=== PATIENT | female | born 1945 | race Caucasian/White ===

== ENCOUNTER 2019-06-11 12:25 | Day surgery (SDC) | payer OTHER ==
[~2019-06-11] VITALS: Ht 157.5 cm; Wt 44.5 kg
[~2019-06-11 12:25] MED LIST: AMOCLA875 PO; BENTYL 20 MG PO; CHOL10002 PO; COMPAZINE10 MG; CYCL10; DIAZ2; DULO60 PO; ESCI10; Elocon45 GM TOP; FLUT.05NI; Flonase 0.05% N16 GM; Gabapentin600 MG; IBUP200; LISI5 PO; OMEP20ER PO; PARO20 PO; Pepcid40 MG PO; QUET25 PO; Ultram50 MG PO; [UNRECOGNIZED DRUG - REMARK]
--- NOTE | 2019-06-11 12:48 | NUR ---
06/11/19 1248 Astrid Torres 1ST IV ATTEMP IN RIGHT HAND 2ND IV ATTEMPT IN RIGHT FOREARM
== END 2019-06-11 13:50 | disposition home or self-care (01) ==
LOC: ORSCSDS 12:25
PROVIDERS: Internal Medicine Gastroenterology
PROC: 0DBE8ZX Excision of Large Intestine, Via Natural or Artificial Opening Endoscopic, Diagnostic (ICD-10-PCS; principal; 2019-06-11 13:45)
DX: R19.7 Diarrhea, unspecified (principal); R63.4 Abnormal weight loss; R11.0 Nausea; K57.30 Diverticulosis of large intestine without perforation or abscess without bleeding; J44.9 Chronic obstructive pulmonary disease, unspecified; Z87.891 Personal history of nicotine dependence; Z79.899 Other long term (current) drug therapy
CPT/HCPCS: 88305; J2704; J7120

== ENCOUNTER → 2019-11-15 | Outpatient (CLI) | payer OTHER, SELFPAY | END | disposition home or self-care (01) | LOC: LAB SHORT 12:30 → LAB 12:30 | DX: R19.7 Diarrhea, unspecified (principal) | CPT/HCPCS: 87493 ==

== ENCOUNTER → 2019-12-04 | Outpatient (CLI) | payer OTHER ==
[2019-12-04 19:40] LABS: Adenovirus F 40/41 Not Detected (NOT DETECT); Astrovirus Not Detected (NOT DETECT); Campylobacter Sp Not Detected (NOT DETECT); Cryptosporidium Not Detected (NOT DETECT); Cyclospora Cayetanensis Not Detected (NOT DETECT); E. Coli O157 Not Detected (NOT DETECT); Entamoeba Histolytica Not Detected (NOT DETECT); Enteroaggregative E. coli-EAEC Not Detected (NOT DETECT); Enteropathogenic E. coli-EPEC Not Detected (NOT DETECT); Enterotoxigenic E. coli-ETEC Not Detected (NOT DETECT); Giardia Lamblia Not Detected (NOT DETECT); Norovirus GI/GII Not Detected (NOT DETECT); Plesiomonas Shigelloides Not Detected (NOT DETECT); Rotavirus A Not Detected (NOT DETECT); Salmonella Sp Not Detected (NOT DETECT); Sapovirus Not Detected (NOT DETECT); Shiga Toxin-prod E. coli-STEC Not Detected (NOT DETECT); Shigella/Enteroin E. coli-EIEC Not Detected (NOT DETECT); Vibrio Cholerae Not Detected (NOT DETECT); Vibrio Sp Not Detected (NOT DETECT); Yersinia Enterocolitica Not Detected (NOT DETECT)
== END | disposition home or self-care (01) ==
LOC: LAB SHORT 10:30 → LAB 10:30 → LAB FUT 05-22 07:45
PROVIDERS: Internal Medicine Gastroenterology
DX: R19.7 Diarrhea, unspecified (principal)
CPT/HCPCS: 0097U

== ENCOUNTER 2021-03-22 18:36 | Emergency (ER) | payer OTHER ==
[~2021-03-22] VITALS: Ht 157.5 cm; Wt 49.4 kg
[~2021-03-22 18:36] MED LIST changes: +AMLO5 PO; +CLON.5 PO; +CYMBALTA30 M1 PO; +FAMO20 PO; +IBUP200 PO; +NEURONTIN600 MG; +Prochlorperazin10 MG PO; +QUETIAPINE FUMA50 M2 PO; +VALIUM PO
[2021-03-22 20:06] LABS: BASOPHILS ABSOLUTE AUTO 0.08 K/mm3 (0.00-0.23); BASOPHILS PERCENT AUTO 1 % (0-2); EOSINOPHILS ABSOLUTE AUTO 0.16 K/mm3 (0.00-0.68); EOSINOPHILS PERCENT AUTO 2 % (0-6); Hematocrit 27.1 % (33.0-51.0); Hemoglobin 9.5 g/dL (11.5-16.0); IMMATURE GRAN ABSOLUTE AUTO 0.07 K/mm3 (0.00-0.10); IMMATURE GRAN PERCENT AUTO 1 % (0-1); LYMPHOCYTES ABSOLUTE AUTO 0.57 K/mm3 (0.84-5.20); LYMPHOCYTES PERCENT AUTO 5 % (21-46); MONOCYTES ABSOLUTE AUTO 1.37 K/mm3 (0.16-1.47); MONOCYTES PERCENT AUTO 13 % (4-13); Mean Corpuscular HGB Conc 35.1 g/dL (31.5-36.5); Mean Corpuscular Volume 91 fL (80-100); Mean Platelet Volume 10.7 fL (9.1-12.4); NEUTROPHILS ABSOLUTE AUTO 8.69 K/mm3 (1.96-9.15); NEUTROPHILS PERCENT AUTO 80 % (41-73); Platelet Count 342 K/mm3 (150-400); RDW Coefficient Variation 18.3 % (11.7-14.2); RDW Standard Deviation 60.7 fL (35.1-46.3); Red Blood Cell Count 2.97 M/mm3 (3.80-5.20); White Blood Cell Count 10.94 K/mm3 (4.00-11.30)
[2021-03-22 20:23] LABS: Alanine Aminotransfer (ALT/SGP 9 U/L (12-78); Albumin/Globulin Ratio 0.8 (0.8-1.8); Alk Phos 89 U/L (50-136); Anion Gap 7 mmol/L (6-16); Aspartate Aminotrans (AST/SGOT 7 U/L (12-37); Bilirubin, Total 0.4 mg/dL (0.1-1.0); Blood Urea Nitrogen 19 mg/dL (8-24); Bun/Creatinine Ratio 19.7 (12.0-20.0); CO2, Blood 24 mmol/L (21-32); Calcium, Blood 8.8 mg/dL (8.5-10.1); Chloride, Blood 105 mmol/L (98-108); Creatinine, Blood 0.96 mg/dL (0.40-1.00); Globulin, Blood 3.9 g/dL (2.2-4.0); Glomerular Filtration Rate >60 (60-); Glucose, Blood 100 mg/dL (70-99); Potassium, Blood 3.7 mmol/L (3.5-5.5); Sodium, Blood 136 mmol/L (136-145); Total Protein, Blood 6.9 g/dL (6.4-8.2); Troponin I <0.015 ng/mL (0.000-0.040)
== END 2021-03-22 22:15 | disposition home or self-care (01) ==
LOC: ER 18:36
PROVIDERS: Emergency Medicine
DX: R07.9 Chest pain, unspecified (principal); Z79.899 Other long term (current) drug therapy
CPT/HCPCS: 71045; 71260; 80053; 83690; 84484; 85025; 93005; 93010; 99285-25; J7030; Q9967

== ENCOUNTER 2022-03-17 12:31 | Emergency (ER) | payer OTHER ==
[~2022-03-17] VITALS: Ht 157.5 cm; Wt 48.1 kg
[~2022-03-17 12:31] MED LIST changes: +MELO7.5 PO; +OXYC5; +Prednisone10 MG PO
[2022-03-17] MEDS ORDERED: OXYM.05NI (13:46)
== END 2022-03-17 13:58 | disposition home or self-care (01) ==
LOC: ER 12:31
DX: R09.81 Nasal congestion (principal); I10 Essential (primary) hypertension; Z88.5 Allergy status to narcotic agent; Z79.899 Other long term (current) drug therapy; Z87.891 Personal history of nicotine dependence
CPT/HCPCS: A9270

== ENCOUNTER 2022-05-02 07:58 | Emergency (ER) | payer OTHER ==
[~2022-05-02] VITALS: Ht 157.5 cm; Wt 46.7 kg
[~2022-05-02 07:58] MED LIST changes: +OXYM.05NI
[2022-05-02] MEDS ORDERED: TIZA4 PO (08:27)
[2022-05-02] MEDS ORDERED: OXAYDO5 M1 PO (10:37)
[2022-05-02] MEDS ORDERED: Voltaren100 GM TOP (10:38)
== END 2022-05-02 11:24 | disposition home or self-care (01) ==
LOC: ER 07:58
DX: M48.54XA Collapsed vertebra, not elsewhere classified, thoracic region, initial encounter for fracture (principal); C34.90 Malignant neoplasm of unspecified part of unspecified bronchus or lung; I10 Essential (primary) hypertension; Z88.5 Allergy status to narcotic agent; Z79.899 Other long term (current) drug therapy; Z87.891 Personal history of nicotine dependence
CPT/HCPCS: 71250; 94640; 94664; A9270; J1885

== ENCOUNTER 2022-05-08 07:52 | Inpatient (IN) | payer OTHER ==
[~2022-05-08] VITALS: Ht 157.5 cm; Wt 41.7 kg
[~2022-05-08 07:52] MED LIST changes: +OXAYDO5 M1 PO; +TIZA4 PO; +Voltaren100 GM TOP
[2022-05-08 08:20] LABS: BASOPHILS ABSOLUTE AUTO 0.04 K/mm3 (0.00-0.23); BASOPHILS PERCENT AUTO 0 % (0-2); EOSINOPHILS PERCENT AUTO 0 % (0-6); Hematocrit 39.6 % (33.0-51.0); Hemoglobin 13.4 g/dL (11.5-16.0); IMMATURE GRAN ABSOLUTE AUTO 0.03 K/mm3 (0.00-0.10); IMMATURE GRAN PERCENT AUTO 0 % (0-1); LYMPHOCYTES ABSOLUTE AUTO 0.49 K/mm3 (0.84-5.20); LYMPHOCYTES PERCENT AUTO 5 % (21-46); MONOCYTES ABSOLUTE AUTO 0.57 K/mm3 (0.16-1.47); MONOCYTES PERCENT AUTO 6 % (4-13); Mean Corpuscular HGB Conc 33.8 g/dL (31.5-36.5); Mean Corpuscular Volume 83 fL (80-100); Mean Platelet Volume 10.6 fL (9.1-12.4); NEUTROPHILS ABSOLUTE AUTO 8.36 K/mm3 (1.96-9.15); NEUTROPHILS PERCENT AUTO 88 % (41-73); Platelet Count 492 K/mm3 (150-400); RDW Coefficient Variation 16.7 % (11.7-14.2); RDW Standard Deviation 50.2 fL (35.1-46.3); Red Blood Cell Count 4.78 M/mm3 (3.80-5.20); White Blood Cell Count 9.49 K/mm3 (4.00-11.30)
[2022-05-08 08:33] LABS: Source, Urine Straight Cath
[2022-05-08 08:37] LABS: Appearance, Urine Clear (Clear); Bilirubin, Urine Neg (Neg); Blood, Urine 2+ (Neg); Color, Urine Yellow (P-Yellow); Glucose Qualitative, Urine 2+ (Neg); Ketones, Urine 4+ (Neg); Leukocyte Esterase, Urine Neg (Neg); Nitrite, Urine Neg (Neg); Protein, Urine 2+ (Neg); Specific Gravity, Urine 1.015 (1.003-1.022); Urobilinogen, Urine NORM (Normal)
[2022-05-08 08:43] LABS: Albumin, Blood 4.1 g/dL (3.4-5.0); Bilirubin, Total 0.9 mg/dL (0.1-1.0); Bun/Creatinine Ratio 15.5 (12.0-20.0); Creatinine, Blood 0.71 mg/dL (0.40-1.00); Globulin, Blood 4.2 g/dL (2.2-4.0); Potassium, Blood 3.7 mmol/L (3.5-5.5); Thyroid Stimulating Hormone 1.12 uIU/mL (0.360-4.800); Total Protein, Blood 8.3 g/dL (6.4-8.2)
[2022-05-08 08:43] LABS: Bacteria Rare /hpf; Squamous Epithelial Cells Rare /hpf (Few); White Blood Cells, Urine 0-2 /hpf (0-5)
[2022-05-08 11:36] LABS: U Amphetamine Screen Not Detected; U Barbituate Screen Not Detected; U Benzodiazapine Screen Not Detected; U Buprenorphine Screen Not Detected; U Cannabinoids Screen DETECTED; U Cocaine Screen Not Detected; U Methadone Screen Not Detected; U Methamphetamine Screen Not Detected; U Opiates Screen Not Detected; U Oxycodone Screen DETECTED; U Phencyclidine Screen Not Detected; U Propoxyphene Screen Not Detected
--- NOTE | 2022-05-08 18:49 | NUR ---
END OF SHIFT SUMMARY: PATIENT HAS BEEN ALERT TO SELF AND , VERY SLIGHTLY IMPROVED, PATIENT WAS PLACED ON RESTRAINTS, FOR SAFETY TO LINES, AND SELF, SHE IS CONFUSED WEAK AND EXTREMELY HIGH FOR A FALL. PATIENT HAS FLUIDS RUNNING NS AT 125 FOR A 1 TIME BAG. PATIENT HAS BEEN ST, NO ACUTE DISTRESS AT THE TIME OF THIS NOTE. PATIENT MORE CALM, NO NEED FOR THE IV ATIVAN NEEDED AT THIS MOMENT, PREFORMED ORAL CARE, DID NOT TOLERATE WELL, TRIED ICE, PATIENT COULD NOT TOLERATE IT, WILL INFORM NIGHT RN. TELE IN PLACE, WILL CONTINUE TO MONITOR, UNITL SHIFT CHANGE.
[2022-05-09 04:08] LABS: BASOPHILS ABSOLUTE AUTO 0.05 K/mm3 (0.00-0.23); BASOPHILS PERCENT AUTO 1 % (0-2); EOSINOPHILS ABSOLUTE AUTO 0.01 K/mm3 (0.00-0.68); EOSINOPHILS PERCENT AUTO 0 % (0-6); Hematocrit 36.8 % (33.0-51.0); IMMATURE GRAN ABSOLUTE AUTO 0.03 K/mm3 (0.00-0.10); IMMATURE GRAN PERCENT AUTO 0 % (0-1); LYMPHOCYTES ABSOLUTE AUTO 0.44 K/mm3 (0.84-5.20); LYMPHOCYTES PERCENT AUTO 4 % (21-46); MONOCYTES ABSOLUTE AUTO 1.23 K/mm3 (0.16-1.47); MONOCYTES PERCENT AUTO 11 % (4-13); Mean Corpuscular HGB Conc 32.6 g/dL (31.5-36.5); Mean Corpuscular Volume 86 fL (80-100); Mean Platelet Volume 11.1 fL (9.1-12.4); NEUTROPHILS PERCENT AUTO 84 % (41-73); Platelet Count 454 K/mm3 (150-400); RDW Coefficient Variation 17.1 % (11.7-14.2); RDW Standard Deviation 53.1 fL (35.1-46.3); Red Blood Cell Count 4.28 M/mm3 (3.80-5.20); White Blood Cell Count 10.96 K/mm3 (4.00-11.30)
[2022-05-09 04:36] LABS: Albumin, Blood 3.8 g/dL (3.4-5.0); Albumin/Globulin Ratio 1.1 (0.8-1.8); Bun/Creatinine Ratio 24.4 (12.0-20.0); Calcium, Blood 8.8 mg/dL (8.5-10.1); Creatinine, Blood 0.62 mg/dL (0.40-1.00); Globulin, Blood 3.4 g/dL (2.2-4.0); Potassium, Blood 3.4 mmol/L (3.5-5.5); Total Protein, Blood 7.2 g/dL (6.4-8.2)
--- NOTE | 2022-05-09 06:35 | NUR ---
SHIFT SUMMARY PATIENT ALERT, ORIENTED TO SELF ONLY. PATIENT WILL LOOK AT STAFF AND HOLD STAFF'S HANDS BUT WILL ONLY COMMUNICATE WITH ONE WORD ANSWERS OR BY SHAKING HER HEAD YES OR NO. VSS. MEDICATED PER EMAR FOR HTN. PATIENT REMAINS ON RA WITH O2 SAT >90%. JIGNESH IN PLACE FOR SAFETY/PROTECTION OF LINES/TUBES. CHRISTENSEN PATENT AND DRAINING DARK YELLOW URINE. PATIENT ABLE TO MOVE HERSELF IN BED INDEPENDENTLY. NO OTHER SIGNIFICANT CHANGES THIS SHIFT. WILL REPORT TO DAY SHIFT RN.
[2022-05-09] MEDS ORDERED: Amitriptyline H10 MG PO (09:03)
[2022-05-09] MEDS ORDERED: QUET100 PO (09:04)
[2022-05-09] MEDS ORDERED: PROM25 PO (09:09)
[2022-05-09] MEDS ORDERED: PREG150 PO (09:11)
[2022-05-09] MEDS ORDERED: ANORO ELLIPTA1 EACH INH (09:13)
[2022-05-09] MEDS ORDERED: ALBU8HFA2 INH (09:15)
--- NOTE | 2022-05-09 11:27 | NUR ---
BEDSIDE SWALLOW: PATIENT HAS FAILED SWALLOW EVAL: CALL PLACED TO PROVIDER PROVIDER AWARE OF SITUATION CONTINUE TO MONITOR. CHANGED ORDER FOR FLUIDS TO 75 PER HOUR.
--- NOTE | 2022-05-09 15:38 | NUR ---
END OF SHIFT SUMMARY: PATIENT HAS BEEN MAINLY UNCHANGED, HAS A VERY VERY SLIGHT INCREASE IN MENTATION, HOWEVER, PATIENT IS STILL NEEDING THE CHRISTENSEN, AND JIGNESH VEST. PATIENT HAS STILL HAD SLIGHTLY ELEVATED BLOOD PRESURE EVEN WITH 15 OF HYDRALAZINE. PATIENT RECIEVED TORDOL X 1 AND ATTEMPTED THE ODT NAUSEA MEDS, UNSUCCESSFUL ATTEMPT, PATIENT SPIT OUT THE ZOFRAN, PATIENT FAILED A SPEECH EVAL FROM THIS PRINTER MACHINE COULD NOT TOLERATE A SIP OF WATER AT THIS TIME, REATTEMPTED LATER WITH SAME RESULT, ORDER FOR ST. RATE CHANGE FROM 125 NS TO 75.
[2022-05-10 04:25] LABS: Bun/Creatinine Ratio 35.5 (12.0-20.0); Calcium, Blood 8.6 mg/dL (8.5-10.1); Creatinine, Blood 0.73 mg/dL (0.40-1.00); Potassium, Blood 2.9 mmol/L (3.5-5.5)
--- NOTE | 2022-05-10 05:24 | NUR ---
SHIFT SUMMARY PATIENT ALERT, ORIENTED TO SELF ONLY. PATIENT LOOKS AT AND TRACKS STAFF. CONTINUES TO ONLY COMMUNICATE BY SHAKING HER HEAD YES OR NO. OCCASIONAL VERBAL YES OR NO RESPONSES. HYPERTENSIVE AT TIMES, MEDICATED PER EMAR. JIGNESH IN PLACE FOR SAFETY. PATIENT ABLE TO REPOSITION SELF IN BED. NS INFUSING PER MAR. NO OTHER SIGNIFICANT CHANGES THIS SHIFT, WILL REPORT TO DAY SHIFT RN.
--- NOTE | 2022-05-10 09:20 | NUR ---
ASSUMPTION OF CARE: PATIENT IS THE SAME WHEN I LEFT THE PREVIOUS DAY FOR MENTATION. PATIENT HAS NS RUNNING AT 75, I STARTED HER k+ SHE HAS 60 MEQ ORDERED, BLOOD PRESSURE WAS ELEVATED GAVE HER 20 OF HYDRALAZINE, PROVIDER STOPPED BY AND WILL COME BACK SHE IS CURRENLTY SLEEPING. PATIENT STILL IN JIGNESH, RIGHT IV INFUSING WELL, NO SIGNS OF ACUTE DISTRESS. WILL CONTINUE TO MONITOR
--- NOTE | 2022-05-10 17:18 | NUR ---
END OF SHIFT SUMMARY: PATIENT HAS BEEN RESTING FOR ATLEAST 4 HOURS TODAY, HAS BEEN REPOSITIONED ATLEAST Q2, HOWEVER HAS ALSO BEEN SHIFTING AND MOVING INDEPENDENTLY. PATIENT HAS BEEN AFEBRILE, DENIES CHEST PAIN, OR SOB. PATIENT HAS STILL BEEN NPO, TOLERATING THE K+ REPLACEMENT SHE RECIEVED THROUGH THE DAY, 60 MEQ IN TOTAL. PATIENT SEEMS TO BE MORE WITHDRAWN, HOSPITLIST ORDERED A PSYCH CONSULT. SPO2 HAS BEEN >94% ON RA, RR 16 AT REST AND WHEN ANXIOUS 24, EASILY CONSULABLE, PERIPHERAL NUTRITION IS TO BE STARTED TODAY, POWERGLIDE CURRENLTY IN THE PROCESS OF BEING PLACED. PATIENT HAD A SLIGHT DECREASE TO MENTATION BEFORE FALLING ASLEEP SHE WAS CALLING OUT FOR HER MAMA. AFTER RESTING HER MENTATION HAS BEEN SLIGHTLY BETTER AND WHAT I HAVE SEEN SINCE HER BEING ADMITTED TO PCU AND THIS PACKER INSPECTOR. PATIENT IS STILL IN HER JIGNESH VEST, THAT IS LOOSE FITTING SHE LIKES TO SELF REPOSITION AND HAS ONLY STARTED TO GRAB LINES, AND HER CHRISTENSEN ONLY A COUPLE TIMES THROUGH THE DAY. PATIENT WAS TREATED FOR PAIN PER DEC, BLOOD PRESSURE WAS ELEVATED IN THE AM TOLERATED 20MG OF HYDRALAZINE WELL. AT TIME HER HR HAS BEEN IN THE UPPER 80'S WHICH IS AN IMPROVMENT FROM HER 100-110'S THIS AM AND PREVIOUS SHIFT. PATIENT ALSO TREATED FOR NAUSEA X 1. WILL CONTINUE TO MONITOR UNTIL SHIFT CHANGE NO CONCERNS FROM THIS PACKER INSPECTOR AT THIS TIME.
[2022-05-11 05:22] LABS: Bun/Creatinine Ratio 38.5 (12.0-20.0); Creatinine, Blood 0.65 mg/dL (0.40-1.00); Magnesium, Blood 2.4 mg/dL (1.6-2.4); Phosphorus, Blood 1.6 mg/dL (2.5-4.9); Potassium, Blood 3.2 mmol/L (3.5-5.5)
--- NOTE | 2022-05-11 06:05 | NUR ---
SHIFT SUMMARY PATIENT ALERT, ORIENTED TO SELF ONLY. PATIENT CONTINUES TO ONLY COMMUNICATE NONVERBALLY WITH STAFF. JIGNESH VEST IN PLACE FOR SAFETY. PATIENT ABLE TO REPOSITION SELF INDEPENDENTLY. VSS. PATIENT ON RA WITH O2 SAT >90%. CLINIMIX INFUSING. MEDICATED FOR PAIN PER EMAR. CHRISTENSEN IN PLACE DRAINING DARK YELLOW URINE TO GRAVITY. NO OTHER ACUTE CHANGES, WILL REPORT TO DAY SHIFT RN.
--- NOTE | 2022-05-11 09:33 | NUR ---
AM NOTES: FAMILY AT BEDSIDE AT THIS TIME, DAUGHTER AND . PT STILL NON VERBAL BUT WAS ABLE TO SAY "AHHH" WHEN ASK TO OPEN MOUTH AND SAY "AHHH". PT CAN FOLLOW SOME COMMANDS BUT MOSTLY NOT COOPERATIVE SPEECH THERAPIST CAME IN TO WORK WITH THE PT, PT UNABLE TO COOPERATE WAS REFUSING LIQUIDS OFFERED AND WAS SPITTING IT OUT. PT WAS ABLE TO MOVE AROUND IN BED WAS ATTEMPTING TO GET OUT OF BED, JIGNESH VEST AND BED ALARM ON FOR SAFETY. VITALS HRR 90'S SR, BP SYSTOLIC ELEVATED 160-180'S HYDRALAZINE IV 20MG GIVEN BP SYSTOLIC NOW ON THE 120'S, SATS ABOVE 92% ON RA AFEBRILE. PT AWAITING TO BE SEEN BY PSYCH FOR AN EVAL. CLINIMIX RUNNING AT 60MLS/HR WITH LIPIDS INFUSING AT 25MLS/HR, KPHOS WITH 30MM INFUSING WELL. PT WAS GIVEN TORADOL IV 15MG THIS MORNING PT RESTLESS IN BED AND NODS HEAD WHEN ASKED IF PT WAS IN PAIN. PT NOW CALM AND RESTING IN BED. CALL LIGHTS IN REACH WILL CONTINUE TO MONITOR
--- NOTE | 2022-05-11 17:49 | NUR ---
PT SUMMARY: SEE AM NOTES PT REMAINED ON JIGNESH VEST ALL SHIFT FOR SAFETY, PT WITH ATTEMPTS OF GETTING OUT OF BED. TRANSITION TO MEDICAL STATUS WITH NO TELE. VITALS STABLE PT REMAINED NON VERBAL BUT STILL ABLE TO VOICE OUT "AHHH" WHEN INSTRUCTED. THERAPY DOG CAME BY TWICE TO STIMULATE PT, WAS ABLE TO INTERACT WITH THE DOG BUT STILL NON VERBAL. DR KIRAN WAS ABLE TO SEE PT THIS AFTERNOON WAS ALSO ABLE TO TALK TO THE ABOUT THE EVAL. NO NEW ORDERS FOR NOW. PT KEPT NPO, CLNIMIX RUNNING AT 70MLS/HR. AND DAUGHTER HAS BEEN AT THE BEDSIDE MOST OF THE SHIFT. PT REPOSITIONED FOR COMFORT. NO REPORTED BM, CHRISTENSEN DRAINING PATENT VIA GRAVITY. CALL LIGHTS IN REACH, WILL REPORT TO ONCOMING SHIFT
--- NOTE | 2022-05-11 19:18 | NUR ---
ASSUMED CARE OF PT AT 1915. REPORT RECEIVED AT BEDSIDE. PT PRESENTS IN BED. SITTING AT SIDE OF BED EVEN WITH JIGNESH IN PLACE. NO ATTEMPTS TO TRY AND GET OUT OF BED AT THIS TIME. FAMILY AT BEDSIDE. PT IN NO APPARENT DISTRESS. WILL REVIEW CHART AND PLAN OF CARE FOR THIS PT.
--- NOTE | 2022-05-12 03:19 | NUR ---
PT REMAINS PLEASANTLY CONFUSED. DOES GET HERSELF UP TO SIT AT SIDE OF BED. VEST RESTRAINT MAINTAINS THAT PT UNABLE TO GET OUT OF BED. MEDICATED PT WITH 15 MG TORODOL FOR BACK PAIN. PT WILL NOD HER HEAD 'YES' TO QUESTIONS. WHEN REPOSITIONG PT AT ONE TIME, SHE DID SAY, "NO, NO." THESE ARE THE ONLY WORDS PT HAS SPOKEN TO THIS RN. WILL CONTINUE TO MONITOR PT FOR SAFETY.
[2022-05-12 05:53] LABS: Anion Gap 8 mmol/L (6-16); Blood Urea Nitrogen 36 mg/dL (8-24); Bun/Creatinine Ratio 48.3 (12.0-20.0); CO2, Blood 22 mmol/L (21-32); Calcium, Blood 8.7 mg/dL (8.5-10.1); Chloride, Blood 114 mmol/L (98-108); Creatinine, Blood 0.75 mg/dL (0.40-1.00); Glomerular Filtration Rate 83 (60-); Glucose, Blood 122 mg/dL (70-99); Magnesium, Blood 2.3 mg/dL (1.6-2.4); Phosphorus, Blood 3.6 mg/dL (2.5-4.9); Potassium, Blood 3.7 mmol/L (3.5-5.5); Sodium, Blood 144 mmol/L (136-145); Triglycerides 172 mg/dL (30-160)
--- NOTE | 2022-05-12 21:24 | NUR ---
CARE ASSUMPTION: PATIENT ATTEMPTING TO EXIT BED AND CHRISTENSEN PULLED TAUT. GRUNTED AT STAFF SHE WAS MOVED BACK IN BED. THIS RN ASSISTED CABIN CREW IN REPOSITIONING PATIEN AND PROVIDED PERICARE. DAUGHTER CAME IN TO SIT AT BEDSIDE AND ASKED WHY THE DOBHOFF WAS OUT, WHY PATIENT WAS NOT RECEIVING HER "MED COCKTAIL," AND WHY THE WRIST RESTRAINTS HAD BEEN REMOVED. WHEN SHE HAD LEFT BEDSIDE THIS MORNING SHE FELT THEY WERE MAKING PROGRESS SO WAS CONFUSED WHY AND WHAT CHANGED IN HER ABSENCE. REVIEWED MED LIST PER EMAR WITH DAUGHTER AND NOTED NO PSYCH MEDS HAVE BEEN ORDERED. DAUGHTER WANTS A CARE PLAN AND IS FRUSTRATED "NOTHING SEEMS TO BE BEING DONE TO HELP BRING MOM BACK." DAUGHTER EXPRESSES APPRECIATION FOR NURSING STAFF, BUT "WANTS TO TRY ONE MORE THING [PSYCH MEDS VIA DOBHOFF] BEFORE EXPLORING OTHER OPTIONS [HOSPICE OR PALLIATIVE CARE]." UPON FURTHER EXPLORATION OF NOTES AFTER DAUGHTER LEFT IT'S NOTED THE SECOND DOBHOFF WAS PULLED EVEN WITH WRIST RESTRAINTS IN PLACE LEAVING SEDATION THE ONLY OPTION FOR KEEPING DOBHOFF IN PLACE. SEDATION IS NOT A GOOD OPTION FOR THIS PATIENT MENTATION IS WHAT IS BEING ASSESSED. DR. VALADEZ SIGNED OFF ON PATIENT'S CASE AND WILL NOT BE PURSUING FURTHER PSYCHIATRY TREATMENT FOR HER. BED LOW WITH JIGNESH VEST IN PLACE, CALL LIGHT IN REACH.
[2022-05-13 04:54] LABS: BASOPHILS ABSOLUTE AUTO 0.05 K/mm3 (0.00-0.23); BASOPHILS PERCENT AUTO 0 % (0-2); EOSINOPHILS ABSOLUTE AUTO 0.05 K/mm3 (0.00-0.68); EOSINOPHILS PERCENT AUTO 0 % (0-6); Hematocrit 31.8 % (33.0-51.0); Hemoglobin 10.3 g/dL (11.5-16.0); IMMATURE GRAN ABSOLUTE AUTO 0.06 K/mm3 (0.00-0.10); IMMATURE GRAN PERCENT AUTO 1 % (0-1); LYMPHOCYTES ABSOLUTE AUTO 0.82 K/mm3 (0.84-5.20); LYMPHOCYTES PERCENT AUTO 7 % (21-46); MONOCYTES ABSOLUTE AUTO 1.12 K/mm3 (0.16-1.47); MONOCYTES PERCENT AUTO 9 % (4-13); Mean Corpuscular HGB 28.1 pg (26.0-34.0); Mean Corpuscular HGB Conc 32.4 g/dL (31.5-36.5); Mean Corpuscular Volume 87 fL (80-100); Mean Platelet Volume 12.3 fL (9.1-12.4); NEUTROPHILS ABSOLUTE AUTO 10.03 K/mm3 (1.96-9.15); NEUTROPHILS PERCENT AUTO 83 % (41-73); Platelet Count 356 K/mm3 (150-400); RDW Coefficient Variation 17.7 % (11.7-14.2); RDW Standard Deviation 55.8 fL (35.1-46.3); Red Blood Cell Count 3.67 M/mm3 (3.80-5.20); White Blood Cell Count 12.13 K/mm3 (4.00-11.30)
--- NOTE | 2022-05-13 05:06 | NUR ---
SHIFT SUMMARY: PATIENT RESPONDS TO HER NAME BY LOOKING AT STAFF, BUT OTHERWISE NONVERBAL. VS WNL ON RA. CHRISTENSEN DRAINING TO GRAVITY. JIGNESH VEST IN PLACE. REPOSITIONED TOLERATED AND PATIENT DID SOME REPOSITIONING HERSELF. MOVED PATIENT FROM BED TO CHAIR THIS AM. NO ADVERSE EVENTS THIS SHIFT. CALL LIGHT IN REACH. WILL CONTINUE TO MONITOR AND REPORT TO ONCOMING RN.
[2022-05-13 05:12] LABS: Albumin, Blood 2.9 g/dL (3.4-5.0); Bilirubin, Total 0.6 mg/dL (0.1-1.0); Bun/Creatinine Ratio 41.9 (12.0-20.0); Calcium, Blood 8.3 mg/dL (8.5-10.1); Creatinine, Blood 0.74 mg/dL (0.40-1.00); Potassium, Blood 3.7 mmol/L (3.5-5.5); Total Protein, Blood 5.9 g/dL (6.4-8.2)
[2022-05-13 05:34] LABS: Magnesium, Blood 2.2 mg/dL (1.6-2.4); Phosphorus, Blood 3.2 mg/dL (2.5-4.9)
--- NOTE | 2022-05-13 12:03 | NUR ---
UPDATE / COMFORT CARE PT ALERT THIS AM, NONVERBAL. PT DOES NOT ANSWER Y/N Q's. PT ABLE TO MOVE ALL EXT's. ST TO PT RM THIS AM W/ FAILED EVAL (SEE ST NOTE). PT FAMILY AT BEDSIDE, STATING THEY DON'T WANT PT TO SUFFER. MD QUISPE TO BEDSIDE DISCUSSING PLAN W/ PT DAUGHTERS. PT DAUGHTERS STATING "WE JUST WANT HER TO BE COMFORTABLE. SHE'S CALLING OUT FOR HER MOMMA. WE JUST WANT HER TO BE ABLE TO PASS COMFORTABLY." PT FAMILY STATING NO DESIRE FOR RE-INITIATING ANY TUBES FOR FEEDING OR MEDICATIONS. PALLIATIVE CARE NURSE NOTIFIED. W/ ORDER FOR COMFORT CARE PER FAMILY REQUEST AFTER DISCUSSION. FAMILY REMAINS AT BEDSIDE.
--- NOTE | 2022-05-13 13:28 | NUR ---
Spoke with Dr Iglesias and Primary RN Jade. Family has elected Comfort Care for Pt. 77 year old female admitted to the hospital for Toxic Metabolic Encephalopathy. Pt medical history and comordidites include: HTN, IBS, Depression, Squamous Cell Carcinoma S/P chemo & radiation currently in remission, Severe Pulmonary Emphysema, Chronic Thoracic Compression Fx, and Dementia. Pt resting in bed and is non verbal. Pt's daughters Leilani and Katya at bedside. Daughters report family feel that Pt would want to focus on end of life care and comfort at this point in her life. Daughters report Pt's spouse Alex is in agreement but is unable to attend today due to alcohol intoxication. Educated on comfort care and hospice philosophy with V/U made by family. Family confirm Pt's wishes for comfort care. Gentle education of needing to consider home with hospice with family verbalising understanding. Offered therapeutic listening and answered questions. Family expresses concerns regarding medications as Pt is not swallowing. Educated on comfort care medications. No other concerns reported at this time. Placed comfort care order set per V/O from Dr Iglesias. PPS 50% Palliative Care will remain available.
--- NOTE | 2022-05-13 18:00 | NUR ---
TRANSFER TO MEDICAL FLOOR PT COMFORT CARE STATUS. ALERT, SLEEPING INTERMITTENTLY. PT MEDICATED W/ PRN SL ROXANOL PER EMAR PRIOR TO PT TRANSFER TO [facility] D/T PT WAKING UP GRIMACING. REPORT GIVEN TO ACCEPTING MEDICAL FLOOR RN ASSUMING CARE OF PT. PT TAKEN TO [facility] IN BED, BY PCT & RN @ APPROX 1800. PT DAUGHTER AT BEDSIDE. CHRISTENSEN CATH PATENT & DRAINING.
--- NOTE | 2022-05-13 18:06 | NUR ---
Pt arrived to 308 via bed, she has her eyes open and shook her head yes when this nurse asked her if she is comfortable, daughter in attendence, comfort cart ordered. call light in reach.
--- NOTE | 2022-05-13 18:53 | NUR ---
pt uncomfortable in bed, got her into a recliner, and placed a scaplolamine patch, daughter in attendence. call light in reach.
--- NOTE | 2022-05-14 05:33 | NUR ---
SHIFT SUMMARY: PT HAS BEEN COOPERATIVE WITH CARE. FAMILY HAS BEEN AT BEDSIDE. THE PT HAS BEEN NON-VERBAL THIS SHIFT, BUT FAMILY REPORTS SHE WILL TALK SELDOMLY--SOME SENSICAL AND NON-SENSICAL. PT HAS BEEN TURNED Q2 AND SKIN [facility]TEGRITY IS INTACT FAMILY IS AWARE THAT PALLIATIVE CARE IS ON BOARD AND WILL BE HAVING A DISCUSSION WITH THE FAMILY. THERE ARE COMFORT CARE OPTIONS IN THE EMAR. WE WILL CONTINUE TO MONITOR THE REMAINDER OF THE SHIFT.
--- NOTE | 2022-05-14 09:02 | NUR ---
COMFORT CARE DAUGHTER AND AT [facility]. PATIENT NOD HEAD YES TO CONFIRM NAME AND VERBALLY STATED . MEDICATED FOR PAIN. REPOSITIONED. ORAL CARE COMPLETED. SIPS OF WATER PROVIDED AND TOLERATED WELL. FAMILY CONTINUING TO OFFER SIPS OF WATER.
--- NOTE | 2022-05-14 10:27 | NUR ---
Pt resting in recliner chair, alert, and talkative upon arrival. Pt's daughers are at bedside. Family reports they have been offering fluids and Pt has been accepting. Family report they would like to reverse coarse and take Pt off comfort care. Continued therapeutic listening and gentle education. Spoke with Dr Iglesias and discussed case. Dr Iglesias will order ST evaluation. Spok with Primary RN Simone, JUSTIN Carter and discussed case. Palliative Care will remain available for therapeutic visits.
--- NOTE | 2022-05-14 17:23 | NUR ---
SHIFT [facility] PATIENT STARTED SHIFT ON COMFORT CARE. PATIENT A&OX3, VERBALLY COMMUNICATING. ABLE TO TAKE SMALL SIPS OF WATER. PATIENT AND FAMILY REQUESTING IV NUTRITION AND ADDITIONAL MEASURES. PALLIATIVE CARE NOTIFIED. PATIENT TAKEN OFF COMFORT CARE AND SPEECH EVAL ORDERED. PATIENT TOLERATING PUREE DIET WELL. 2PA UP TO CHAIR. C/O PAIN ON BUTTOCK AND HIPS. MEDICATED PER DEC. CHRISTENSEN CATHETER IN PLACE PATENT AND DRAINING. BP SLIGHTLY ELEVATED. OTHER VITAL SIGNS STABLE. WILL CONTINUE TO MONITOR.
[2022-05-15 05:05] LABS: BASOPHILS ABSOLUTE AUTO 0.04 K/mm3 (0.00-0.23); BASOPHILS PERCENT AUTO 1 % (0-2); EOSINOPHILS ABSOLUTE AUTO 0.13 K/mm3 (0.00-0.68); EOSINOPHILS PERCENT AUTO 2 % (0-6); Hematocrit 27.4 % (33.0-51.0); IMMATURE GRAN ABSOLUTE AUTO 0.05 K/mm3 (0.00-0.10); IMMATURE GRAN PERCENT AUTO 1 % (0-1); LYMPHOCYTES ABSOLUTE AUTO 0.73 K/mm3 (0.84-5.20); LYMPHOCYTES PERCENT AUTO 9 % (21-46); MONOCYTES ABSOLUTE AUTO 0.91 K/mm3 (0.16-1.47); MONOCYTES PERCENT AUTO 11 % (4-13); Mean Corpuscular HGB 29.2 pg (26.0-34.0); Mean Corpuscular HGB Conc 32.8 g/dL (31.5-36.5); Mean Corpuscular Volume 89 fL (80-100); NEUTROPHILS PERCENT AUTO 78 % (41-73); Platelet Count 337 K/mm3 (150-400); RDW Coefficient Variation 18.1 % (11.7-14.2); RDW Standard Deviation 57.1 fL (35.1-46.3); Red Blood Cell Count 3.08 M/mm3 (3.80-5.20); White Blood Cell Count 8.46 K/mm3 (4.00-11.30)
[2022-05-15 05:31] LABS: Albumin, Blood 2.9 g/dL (3.4-5.0); Anion Gap 7 mmol/L (6-16); Blood Urea Nitrogen 32 mg/dL (8-24); Bun/Creatinine Ratio 34.3 (12.0-20.0); CO2, Blood 23 mmol/L (21-32); Calcium, Blood 8.6 mg/dL (8.5-10.1); Chloride, Blood 116 mmol/L (98-108); Creatinine, Blood 0.93 mg/dL (0.40-1.00); Glomerular Filtration Rate 64 (60-); Glucose, Blood 94 mg/dL (70-99); Phosphorus, Blood 3.2 mg/dL (2.5-4.9); Potassium, Blood 4.2 mmol/L (3.5-5.5); Sodium, Blood 146 mmol/L (136-145)
--- NOTE | 2022-05-15 05:40 | NUR ---
SHIFT SUMMARY: PT IS A/OX2-3. SHE SEEMS TO HAVE MORE CONCRETE THOUGHTS AND IS ABLE TO STATE HER NEEDS. SHE IS A 1-2 PA TO THE CHAIR. CHRISTENSEN IS PATENT AND DRAINING TO GRAVITY. NO OTHER CHANGES TO REPORT THIS SHIFT.
--- NOTE | 2022-05-15 16:22 | NUR ---
PT IS A/OX3, PLEASANT AND COOPERATIVE. THE PT IS UP WITH ASSIST. THE PT WAS UP AMBULATING WITH THE PHYSICAL THERAPIST TODAY. THE PT REPORTED ONLY MILD PAIN TODAY. NO PAIN MEDICINE WAS GIVEN. PTS FAMILY HAS BEEN AT THE BEDSIDE T/O THE DAY. CALL LIGHT IN REACH. THE PT APPEARS TO BE BREATHING EASILY
--- NOTE | 2022-05-16 04:17 | NUR ---
SHIFT SUMMARY: PT IS A/OX3. SHE IS 1PA FROM BED TO CHAIR. CHRISTENSEN CATH WAS REMOVED AT 2300. PT IS DUE TO VOID AND WILL BE BLADDER SCANNED PRIOR TO SHIFT CHANGE. SHE IS TAKING MEDS WHOLE W/ WATER AND IS ABLE TO USE STRAWS. DIET IS ADVANCED TO MECHANICAL SOFT. FAMILY IS AT BEDSIDE. CALL LIGHT IS WITHIN REACH.
[2022-05-16] MEDS ORDERED: Acetaminophen650 M1 PO (09:40)
[2022-05-16] MEDS ORDERED: HALOPERIDOL2 MG/1 M1 PO (09:44)
--- NOTE | 2022-05-16 12:35 | NUR ---
PT DISCHARGED THE PT S FAMILY VERBALIZED UNDERSTANDING OF THE DISCHARGE INSTRUCTIONS. FAMILY WAS REMINDED TO CALL ON TUESDAY TO [place] [facility] RE[facility] WITH HER PCP. THE PT APPEARED TO BE BREATHING EASILY AT THE TIME OF DC. THE PT WAS TRANSFERED VIA WHEELCHAIR ACCOMPANIED BY THE FINANCIAL SERVICES INTERN AND HER FAMILY.
== END 2022-05-16 11:12 | disposition home health service (06) | DRG 917 ==
LOC: ER 07:52 → PCU 15:01 → MEDS 05-13 17:53
PROVIDERS: Emergency Medicine; Family Medicine; Internal Medicine; ADMIT Internal Medicine
DX: T40.711A Poisoning by cannabis, accidental (unintentional), initial encounter (principal); G92.8 Other toxic encephalopathy; E87.0 Hyperosmolality and hypernatremia; E87.1 Hypo-osmolality and hyponatremia; T48.291A Poisoning by other drugs acting on muscles, accidental (unintentional), initial encounter; I10 Essential (primary) hypertension; F32.A Depression, unspecified; R05.9 Cough, unspecified; Z66 Do not resuscitate; E87.6 Hypokalemia; M54.9 Dorsalgia, unspecified; Z51.5 Encounter for palliative care; G89.29 Other chronic pain; K52.9 Noninfective gastroenteritis and colitis, unspecified; J43.9 Emphysema, unspecified; F17.210 Nicotine dependence, cigarettes, uncomplicated; F03.90 Unspecified dementia, unspecified severity, without behavioral disturbance, psychotic disturbance, mood disturbance, and anxiety; R13.10 Dysphagia, unspecified; F12.90 Cannabis use, unspecified, uncomplicated; Z85.118 Personal history of other malignant neoplasm of bronchus and lung; Z92.21 Personal history of antineoplastic chemotherapy; Z92.3 Personal history of irradiation; Z87.81 Personal history of (healed) traumatic fracture; Z90.49 Acquired absence of other specified parts of digestive tract; Z98.51 Tubal ligation status; Z98.890 Other specified postprocedural states; Z88.5 Allergy status to narcotic agent; Z79.52 Long term (current) use of systemic steroids; Z79.899 Other long term (current) drug therapy; Z79.891 Long term (current) use of opiate analgesic
CPT/HCPCS: 36415; 51702; 70450; 71045; 80048; 80053; 80069; 81001; 83690; 83735; 84100; 84145; 84443; 84478; 85025; 92526; 92610; 96372; 96374-59; 96375; 96375-59; 96376; 97116; 97161; 97530; 99285-25; A9270; G0378; J0360; J1630; J1650; J1885; J2060; J2405; J3010; J3411; J3480; J7030; J7060

== ENCOUNTER → 2022-05-20 | Outpatient (CLI) | payer OTHER ==
[~2022-05-20] MED LIST changes: +ALBU8HFA2 INH; +ANORO ELLIPTA1 EACH INH; +Acetaminophen650 M1 PO; +Amitriptyline H10 MG PO; +HALOPERIDOL2 MG/1 M1 PO; +PREG150 PO; +PROM25 PO; +QUET100 PO
[2022-05-20 15:48] LABS: BASOPHILS ABSOLUTE AUTO 0.06 K/mm3 (0.00-0.23); BASOPHILS PERCENT AUTO 1 % (0-2); EOSINOPHILS ABSOLUTE AUTO 0.12 K/mm3 (0.00-0.68); EOSINOPHILS PERCENT AUTO 1 % (0-6); Hematocrit 28.7 % (33.0-51.0); Hemoglobin 9.6 g/dL (11.5-16.0); IMMATURE GRAN ABSOLUTE AUTO 0.06 K/mm3 (0.00-0.10); IMMATURE GRAN PERCENT AUTO 1 % (0-1); LYMPHOCYTES ABSOLUTE AUTO 0.51 K/mm3 (0.84-5.20); LYMPHOCYTES PERCENT AUTO 5 % (21-46); MONOCYTES ABSOLUTE AUTO 1.03 K/mm3 (0.16-1.47); MONOCYTES PERCENT AUTO 10 % (4-13); Mean Corpuscular HGB Conc 33.4 g/dL (31.5-36.5); Mean Corpuscular Volume 87 fL (80-100); Mean Platelet Volume 10.7 fL (9.1-12.4); NEUTROPHILS ABSOLUTE AUTO 8.59 K/mm3 (1.96-9.15); NEUTROPHILS PERCENT AUTO 83 % (41-73); Platelet Count 503 K/mm3 (150-400); RDW Coefficient Variation 17.5 % (11.7-14.2); RDW Standard Deviation 54.4 fL (35.1-46.3); Red Blood Cell Count 3.31 M/mm3 (3.80-5.20); White Blood Cell Count 10.37 K/mm3 (4.00-11.30)
== END | disposition home or self-care (01) ==
LOC: LAB 15:44 → LAB SHORT 15:44
PROVIDERS: Family Medicine
DX: R11.0 Nausea (principal)
CPT/HCPCS: 85025

== ENCOUNTER 2023-02-22 07:57 | Inpatient (IN) | payer OTHER ==
[~2023-02-22] VITALS: Ht 157.5 cm; Wt 46.3 kg
[2023-02-22 08:14] LABS: BASOPHILS ABSOLUTE AUTO 0.05 K/mm3 (0.00-0.23); BASOPHILS PERCENT AUTO 1 % (0-2); EOSINOPHILS ABSOLUTE AUTO 0.12 K/mm3 (0.00-0.68); EOSINOPHILS PERCENT AUTO 2 % (0-6); Hematocrit 42.4 % (33.0-51.0); Hemoglobin 14.2 g/dL (11.5-16.0); Mean Corpuscular HGB 30.3 pg (26.0-34.0); Mean Corpuscular HGB Conc 33.5 g/dL (31.5-36.5); Mean Corpuscular Volume 91 fL (80-100); Mean Platelet Volume 12.3 fL (9.1-12.4); Platelet Count 213 K/mm3 (150-400); RDW Coefficient Variation 15.3 % (11.7-14.2); RDW Standard Deviation 50.9 fL (35.1-46.3); Red Blood Cell Count 4.68 M/mm3 (3.80-5.20); White Blood Cell Count 5.27 K/mm3 (4.00-11.30)
[2023-02-22 08:19] LABS: Base Excess Venous -2.5 mmol/L; Bicarbonate Venous 22.1 mmol/L (24.0-30.0); PCO2 Venous 41.6 mmHg (38-42); pH Blood Venous 7.35 (7.34-7.37)
[2023-02-22 08:20] LABS: IMMATURE GRAN ABSOLUTE AUTO 0.01 K/mm3 (0.00-0.10); IMMATURE GRAN PERCENT AUTO 0 % (0-1); LYMPHOCYTES ABSOLUTE AUTO 1.61 K/mm3 (0.84-5.20); LYMPHOCYTES PERCENT AUTO 31 % (21-46); MONOCYTES ABSOLUTE AUTO 0.59 K/mm3 (0.16-1.47); MONOCYTES PERCENT AUTO 11 % (4-13); NEUTROPHILS ABSOLUTE AUTO 2.89 K/mm3 (1.96-9.15); NEUTROPHILS PERCENT AUTO 55 % (41-73)
[2023-02-22 08:34] LABS: Magnesium, Blood 1.9 mg/dL (1.6-2.4)
[2023-02-22 08:35] LABS: Albumin, Blood 3.8 g/dL (3.4-5.0); Albumin/Globulin Ratio 0.9 (0.8-1.8); Bilirubin, Total 0.4 mg/dL (0.1-1.0); Calcium, Blood 8.6 mg/dL (8.5-10.1); Creatinine, Blood 0.79 mg/dL (0.40-1.00); Globulin, Blood 4.1 g/dL (2.2-4.0); Potassium, Blood 3.6 mmol/L (3.5-5.5); Total Protein, Blood 7.9 g/dL (6.4-8.2)
[2023-02-22 12:34] VITALS: BP 167/92
[2023-02-22] MEDS ORDERED: VENL75ER PO (13:36)
[2023-02-22] MEDS ORDERED: MIRT15 PO (13:37)
[2023-02-22] MEDS ORDERED: PREG100 PO (13:40)
[2023-02-22 14:54] VITALS: BP 193/89
[2023-02-22 19:38] VITALS: BP 143/72
[2023-02-23 05:00] LABS: Hematocrit 34.2 % (33.0-51.0); Hemoglobin 11.6 g/dL (11.5-16.0); Mean Corpuscular HGB 30.1 pg (26.0-34.0); Mean Corpuscular HGB Conc 33.9 g/dL (31.5-36.5); Mean Corpuscular Volume 89 fL (80-100); Mean Platelet Volume 12.9 fL (9.1-12.4); Platelet Count 189 K/mm3 (150-400); RDW Coefficient Variation 15.2 % (11.7-14.2); RDW Standard Deviation 49.4 fL (35.1-46.3); Red Blood Cell Count 3.85 M/mm3 (3.80-5.20); White Blood Cell Count 8.52 K/mm3 (4.00-11.30)
[2023-02-23 05:38] LABS: Bun/Creatinine Ratio 26.5 (12.0-20.0); Calcium, Blood 8.8 mg/dL (8.5-10.1); Creatinine, Blood 0.79 mg/dL (0.40-1.00); Potassium, Blood 3.6 mmol/L (3.5-5.5)
[2023-02-23 05:57] VITALS: BP 128/65
[2023-02-23 07:24] VITALS: BP 121/94
[2023-02-23 16:08] VITALS: BP 154/72
[2023-02-23 19:11] VITALS: BP 157/85
[2023-02-24 03:54] VITALS: BP 145/81
[2023-02-24 07:27] VITALS: BP 143/65
[2023-02-24] MEDS ORDERED: AZIT500 PO (11:29)
[2023-02-24] MEDS ORDERED: IPRAT-ALBUT 0.5-3 ML INH (11:30)
[2023-02-24] MEDS ORDERED: VISBIOME 112.51 EACH PO (11:30)
[2023-02-24] MEDS ORDERED: FLUTICASONE-SA1 EAC2 INH (11:31)
[2023-02-24] MEDS ORDERED: ALBU2.5V5 INH (11:31)
[2023-02-24] MEDS ORDERED: Prednisone10 MG PO (11:32)
== END 2023-02-24 13:04 | disposition home or self-care (01) | DRG 189 ==
LOC: ER 07:57 → MEDS 10:17
PROVIDERS: Student in an Organized Health Care Education/Training Program; ADMIT Internal Medicine
DX: J96.01 Acute respiratory failure with hypoxia (principal); J98.11 Atelectasis; I10 Essential (primary) hypertension; G62.9 Polyneuropathy, unspecified; Z66 Do not resuscitate; F41.9 Anxiety disorder, unspecified; F32.A Depression, unspecified; G47.00 Insomnia, unspecified; J43.9 Emphysema, unspecified; F12.10 Cannabis abuse, uncomplicated; K58.9 Irritable bowel syndrome, unspecified; J40 Bronchitis, not specified as acute or chronic; M54.9 Dorsalgia, unspecified; G89.29 Other chronic pain; Z98.890 Other specified postprocedural states; Z92.21 Personal history of antineoplastic chemotherapy; Z92.3 Personal history of irradiation; Z85.118 Personal history of other malignant neoplasm of bronchus and lung; Z88.5 Allergy status to narcotic agent; Z79.899 Other long term (current) drug therapy; Z79.51 Long term (current) use of inhaled steroids; Z79.891 Long term (current) use of opiate analgesic; Z90.49 Acquired absence of other specified parts of digestive tract; Z98.51 Tubal ligation status; Z87.891 Personal history of nicotine dependence
CPT/HCPCS: 36415; 71045; 80048; 80053; 82803; 83735; 83880; 84145; 85025; 85027; 93005; 93010; 94640; 94644; 94645; 94664; 94760; 94761; 96374; 99285-25; A9270; J1650; J2405; J2550; J2930

== ENCOUNTER 2023-02-25 14:13 | Emergency (ER) | payer OTHER ==
[~2023-02-25] VITALS: Ht 152.4 cm; Wt 54.4 kg
[~2023-02-25 14:13] MED LIST changes: +ALBU2.5V5 INH; +AZIT500 PO; +FLUTICASONE-SA1 EAC2 INH; +IPRAT-ALBUT 0.5-3 ML INH; +MIRT15 PO; +PREG100 PO; +VENL75ER PO; +VISBIOME 112.51 EACH PO
[2023-02-25 14:42] VITALS: BP 136/85
== END 2023-02-25 16:20 | disposition left against medical advice (07) ==
LOC: ER 14:13
DX: H92.02 Otalgia, left ear (principal); M54.2 Cervicalgia; Z53.21 Procedure and treatment not carried out due to patient leaving prior to being seen by health care provider
CPT/HCPCS: 70360; 99281-25

== ENCOUNTER → 2024-06-29 | Outpatient (CLI) | payer OTHER | END | disposition home or self-care (01) | LOC: LAB 12:14 → LAB SHORT 12:14 | DX: R30.0 Dysuria (principal); R35.0 Frequency of micturition; R31.9 Hematuria, unspecified | CPT/HCPCS: 87086 ==